=== PATIENT | male | born 1950 | race Caucasian/White ===

== ENCOUNTER 2021-06-09 13:08 | Inpatient (IN) | payer OTHER, MEDICARE ==
[~2021-06-09] VITALS: Ht 165.1 cm; Wt 73.6 kg
--- NOTE | 2021-06-09 14:19 | NUR ---
PT'S STEP-SON DENICE [phone]
[2021-06-09 15:01] LABS: BASOPHILS % (AUTO) 0.5 % (0-1); EOSINOPHILS % (AUTO) 0.5 % (0-6); HEMATOCRIT 34.7 % (42.0-52.0); HEMOGLOBIN 11.8 g/dl (14.0-17.9); LYMPHOCYTES # (AUTO) 0.9 X10'3 (1.1-4.8); LYMPHOCYTES % (AUTO) 12.5 % (21-51); MEAN CORPUSCULAR HEMOGLOBIN 30.1 PG (27.0-31.0); MEAN CORPUSCULAR HGB CONC 34.1 g/dL (33.0-36.5); MEAN CORPUSCULAR VOLUME 88.2 FL (78-98); MONOCYTES # (AUTO) 1.3 X10'3 (0-0.9); MONOCYTES % (AUTO) 19.3 % (2-12); NEUTROPHILS # (AUTO) 4.7 X10'3 (1.8-7.7); NEUTROPHILS % (AUTO) 67.2 % (42-75); PLATELET COUNT 230 X10'3 (140-440); RED BLOOD COUNT 3.93 X10'6 (4.70-6.10); RED CELL DISTRIBUTION WIDTH 16.4 % (11.5-14.5)
[2021-06-09 15:08] LABS: ALANINE AMINOTRANSFERASE 29 U/L (12-78); ALBUMIN 3.3 G/DL (3.4-5.0); ALKALINE PHOSPHATASE 82 IU/L (46-116); ANION GAP 7 (8-16); ASPARTATE AMINO TRANSFERASE 15 U/L (10-37); BILIRUBIN,TOTAL 0.3 MG/DL (0.1-1.0); BLOOD UREA NITROGEN 18 MG/DL (7-18); CALCIUM 8.5 MG/DL (8.5-10.1); CHLORIDE 104 MMOL/L (99-107); CREATININE 0.75 MG/DL (0.60-1.10); GLUCOSE 92 MG/DL (70-104); MAGNESIUM 1.5 MG/DL (1.5-2.4); POTASSIUM 3.7 MMOL/L (3.5-5.1); SODIUM 138 MMOL/L (135-145); TOTAL PROTEIN 6.6 G/DL (6.4-8.2); eGFR > 90 ML/MIN
[2021-06-09 15:32] LABS: TOTAL CELLS COUNTED 100
[2021-06-09 15:34] LABS: PLATELET ESTIMATE NORMAL
[2021-06-09 15:35] LABS: ANISOCYTOSIS 1+; STOMATOCYTES FEW
[2021-06-09] MEDS ORDERED: dexamethasone sod phosphate 10mg/ml inj IV STA (17:32)
--- NOTE | 2021-06-09 20:46 | NUR ---
UPDATED FAMILY ON PT'S CONDITION.
[2021-06-09 21:06] LABS: CLARITY,URINE CLEAR (Clear); COLOR,URINE YELLOW (Yellow); GLUCOSE, URINE NEGATIVE (Neg); KETONES,URINE TRACE mg/dl (Neg); LEUKOCYTE ESTERASE ,URINE NEGATIVE (Neg); NITRITES, URINE NEGATIVE (Neg); OCCULT BLOOD,URINE NEGATIVE (Neg); PROTEIN,URINE 100 mg/dl (Neg)
[2021-06-09 21:28] LABS: UA COLLECTION TYPE URINAL
[2021-06-09 21:30] LABS: BACTERIA,URINE NONE SEEN /HPF (Neg); SQUAMOUS EPITHELIAL CELL,UR NONE SEEN /LPF (FEW)
[2021-06-09 21:31] LABS: RBC,URINE 0-2 /HPF (0-2); WBC,URINE 0-4 /HPF (0-4)
--- NOTE | 2021-06-09 22:10 | NUR ---
PT WAS SITTING ON THE FLOOR WITH THIS BACK UP AGAINST HIS GURNEY WHEN I WALKED IN TO CHECK ON HIM. VITALS STABLE. PT AWAKE, ALERT, AND ORIENTED. ASKED PT IF HE FELL. HE SAID NO. HE ALSO DENIED HITTING HIS HEAD. NO OBVIOUS SIGN OF TRAUMA. PT DENIES ANY PAIN. PT URINATED ON HIS BED PRIOR TO SITTING ON THE FLOOR. BEDDING HAS BEEN CHANGED. PT WAS HELPED UP AND BACK ON BED BY 2 RNS. SIDERAILS ARE UP. BED IS LOW TO GROUND.
[2021-06-09] MEDS ORDERED: ondansetron/PF 4mg/2ml inj IV PRN (23:50)
[2021-06-09] MEDS ORDERED: magnesium 2GM in 50ml NS 50 ML IV PRN (23:50)
[2021-06-09] MEDS ORDERED: dextrose 50%-water 50ml dispensing syringe IV PRN ×2 (23:50)
[2021-06-09] MEDS ORDERED: potassium Cl 20 mEq SR tablet PO PRN ×2 (23:50)
[2021-06-09] MEDS ORDERED: mag hydrox/Alum hydrox/simeth 30ml oral suspension PO PRN (23:50)
[2021-06-09] MEDS ORDERED: magnesium Cl slow-release 64mg tablet PO PRN (23:50)
[2021-06-09] MEDS ORDERED: potassium Cl 40MEQ/1/2NS 520ml 520 ML IV PRN ×2 (23:50)
[2021-06-09] MEDS ORDERED: insulin Lispro (HumaLOG) vial - multi-dose SQ SCH (23:50)
[2021-06-09] MEDS ORDERED: glucagon, human recombinant 1mg kit SUBCUT PRN (23:50)
[2021-06-09] MEDS ORDERED: acetaminophen 325mg tablet PO PRN ×2 (23:50)
[2021-06-09] MEDS ORDERED: dextrose ORAL solution 15 GM/59 ML bottle PO PRN ×2 (23:50)
[2021-06-09] MEDS ORDERED: MESSAGE TO PHARMACY PO ONE (23:50)
[2021-06-09] MEDS ORDERED: magnesium 4gm in 100ml NS 100 ML IV PRN (23:50)
[2021-06-09] MEDS ORDERED: magnesium hydroxide 30ml (MOM) UD suspension PO PRN (23:50)
--- NOTE | 2021-06-10 01:03 | NUR ---
PT ATE A SANDWICH. LIGHT WAS THEN DIMMED AND PT WAS PROVIDED AN EXTRA BLANKET.
[2021-06-10] MEDS: normal saline 1000ml 1,000 ML IV SCH ×3 (01:21→22:24)
--- NOTE | 2021-06-10 03:35 | NUR ---
PT IS SLEEPING COMFORTABLY. EASILY AWAKEN WHEN SOMEONE ENTERS ROOM. EQUAL RISE AND FALL OF CHEST
[2021-06-10 05:33] LABS: BASOPHILS % (AUTO) 0.5 % (0-1); EOSINOPHILS % (AUTO) 0 % (0-6); HEMATOCRIT 37.3 % (42.0-52.0); HEMOGLOBIN 12.4 g/dl (14.0-17.9); LYMPHOCYTES # (AUTO) 0.6 X10'3 (1.1-4.8); LYMPHOCYTES % (AUTO) 14.7 % (21-51); MEAN CORPUSCULAR HEMOGLOBIN 29.4 PG (27.0-31.0); MEAN CORPUSCULAR HGB CONC 33.3 g/dL (33.0-36.5); MEAN CORPUSCULAR VOLUME 88.4 FL (78-98); MEAN PLATELET VOLUME 8.1 FL (7.4-10.4); MONOCYTES # (AUTO) 0.5 X10'3 (0-0.9); MONOCYTES % (AUTO) 10.7 % (2-12); NEUTROPHILS # (AUTO) 3.2 X10'3 (1.8-7.7); NEUTROPHILS % (AUTO) 74.1 % (42-75); PLATELET COUNT 223 X10'3 (140-440); RED BLOOD COUNT 4.21 X10'6 (4.70-6.10); WHITE BLOOD COUNT 4.3 X10'3 (4.5-11.0)
[2021-06-10 05:46] LABS: ALANINE AMINOTRANSFERASE 31 U/L (12-78); ALBUMIN 3.2 G/DL (3.4-5.0); ALBUMIN/GLOBULIN RATIO 0.9 (1.1-1.5); ALKALINE PHOSPHATASE 80 IU/L (46-116); ANION GAP 5 (8-16); ASPARTATE AMINO TRANSFERASE 21 U/L (10-37); BILIRUBIN,TOTAL 0.3 MG/DL (0.1-1.0); BLOOD UREA NITROGEN 15 MG/DL (7-18); CALCIUM 8.4 MG/DL (8.5-10.1); CHLORIDE 106 MMOL/L (99-107); CHOL/HDL RATIO 2.6 (0.00-4.99); CHOLESTEROL 125 MG/DL (0-200); CREATININE 0.75 MG/DL (0.60-1.10); GLUCOSE 131 MG/DL (70-104); HDL CHOLESTEROL 49 MG/DL (35-60); LDL CHOLESTEROL 52 MG/DL (50-100); MAGNESIUM 1.7 MG/DL (1.5-2.4); SODIUM 141 MMOL/L (135-145); TOTAL CARBON DIOXIDE 30.5 MMOL/L (24-32); TOTAL PROTEIN 6.8 G/DL (6.4-8.2); TRIGLYCERIDES 70 MG/DL (20-135); eGFR > 90 ML/MIN
--- NOTE | 2021-06-10 07:48 | NUR ---
PT'S MAREN FREY PHONE # [phone] KALEN FERMIN, PT DAUGHTER [phone] PT HAS GIVEN PERMISSION TO GIVE THE ABOVE FAMILY MEMBERS INFORMATION REGARDING HIS STATUS WHILE HOSPITALIZED.
[2021-06-10] MEDS: K and/or MAG REPLACEMENT MC SCH ×2 (08:00→22:26)
[2021-06-10] MEDS: heparin, porcine 5000 units/ml vial SQ SCH (08:46)
[2021-06-10] MEDS ORDERED: ATOR20TA66 PO (09:36)
[2021-06-10] MEDS ORDERED: SERT-434 PO (09:36)
[2021-06-10] MEDS ORDERED: BUPR100T13 PO (09:36)
[2021-06-10] MEDS ORDERED: ALBU8.5H17 IH (09:36)
[2021-06-10] MEDS ORDERED: MELO-102 PO (09:36)
[2021-06-10] MEDS ORDERED: DIVA500T9 PO (09:36)
[2021-06-10] MEDS ORDERED: LOSA100T57 PO (09:36)
[2021-06-10] MEDS ORDERED: AMLO10TA PO (09:36)
[2021-06-10] MEDS ORDERED: LORA10TA7 PO (09:36)
[2021-06-10] MEDS ORDERED: METF-436 PO (09:36)
[2021-06-10] MEDS ORDERED: TIOT4MIS5 INH (09:36)
[2021-06-10] MEDS ORDERED: CHOL20004 PO (09:36)
[2021-06-10] MEDS ORDERED: OMEP40CA21 PO (09:36)
[2021-06-10] MEDS ORDERED: HYDR12.55 PO (09:36)
[2021-06-10] MEDS ORDERED: OMEG-79 PO (09:36)
[2021-06-10] MEDS ORDERED: HYDR-3973 PO (09:39)
--- NOTE | 2021-06-10 12:07 | NUR ---
TELEPHONE CALL FROM PATIENT'S COUSIN, JOSE OLIVAREZ. PATIENT AUTHORIZED FOR NURSE TO GIVE INFORMATION TO JOSE. CONDITION REPORT GIVEN. JOSE OLIVAREZ (COUSIN) CONTACT PHONE NUMBER: [phone]
[2021-06-10] MEDS ORDERED: ALBUTEROL INHALER 1 PUFF/90 MCG INHALER IH PRN (12:30)
[2021-06-10] MEDS ORDERED: loratadine 10mg tablet PO PRN (12:30)
[2021-06-10] MEDS ORDERED: pantoprazole 40mg Tablet.DR PO PRN (12:39)
[2021-06-10] MEDS: amLODIPine 5mg tablet PO SCH (13:56)
[2021-06-10] MEDS: HYDROchlorothiazide 12.5mg capsule PO SCH (13:56)
[2021-06-10] MEDS: cholecalciferol (vitamin D3) 1,000 unit (25mcg) tablet PO SCH (13:56)
[2021-06-10] MEDS: losartan 50mg tablet PO SCH (13:57)
[2021-06-10] MEDS: sertraline 50mg tablet PO SCH (13:58)
[2021-06-10] MEDS ORDERED: ipratropium 0.5 MG/2.5ML nebule NEB SCH (15:00)
[2021-06-10] MEDS: OMEGA-3/DHA/EPA/FISH OIL 1 EACH CAPSULE.DR PO SCH (20:00)
[2021-06-10] MEDS: buPROPion 100mg tablet PO SCH (20:00)
--- NOTE | 2021-06-10 20:07 | NUR ---
ATTEMPT TO D/C PT, WHO IS AWAKE AND ALERT, VSS, NOT NEEDING OXYGEN. PT HOWEVER IS EXTREMELY WEAK, UNABLE TO SIT AT SIDE OF BED UNASSISTED, UNABLE TO AMBULATE. DR CLARK PG'ED AND NOTIFIED, ORDERS TO CANCEL D/C AT THIS TIME. REPORTS THEY CAN LOOK INTO IT TOMORROW.
[2021-06-10] MEDS ORDERED: divalproex sod 250mg ER (24-hour) tablet PO SCH (21:00)
[2021-06-10] MEDS ORDERED: insulin glargine (Lantus) pen - multi-dose SQ SCH (21:00)
[2021-06-10] MEDS: metFORMIN 500mg tablet PO SCH (22:24)
--- NOTE | 2021-06-10 23:15 | NUR ---
REPORT GIVEN TO SHORT STAY RN
--- NOTE | 2021-06-10 23:30 | NUR ---
Received report from returned goods sorterCURTIS Lopes. Pt. to follow shortly.
--- NOTE | 2021-06-10 23:45 | NUR ---
Patient arrived to unit from ER via w/c. Patient assisted into bed and 2 RN skin check performed. Patient in no distress.
[2021-06-11] VITALS: BP 139/77
--- NOTE | 2021-06-11 00:05 | NUR ---
Called with regard to elevated temp of 102.7. MD did not want blood cultures re-drawn or ABX started at this time Addendum: 06/11/21 at 0116 by Keiry Middleton RN Tylenol given for fever.
[2021-06-11] MEDS: heparin, porcine 5000 units/ml vial SQ SCH ×2 (00:26→08:07)
[2021-06-11 02:00] VITALS: BP 131/65
--- NOTE | 2021-06-11 02:01 | NUR ---
HS meds were not given in the ER. Addendum: 06/11/21 at 0202 by Keiry Middleton RN and only the heparin available to give,
[2021-06-11] MEDS: normal saline 1000ml 1,000 ML IV SCH ×2 (05:50→13:08)
[2021-06-11 06:00] VITALS: BP 153/73
--- NOTE | 2021-06-11 06:45 | NUR ---
Problems reprioritized. Patient report given, questions answered & plan of care reviewed with Twyla ACEVEDO.
[2021-06-11] MEDS ORDERED: atorvastatin 20mg tablet PO SCH (08:00)
[2021-06-11] MEDS ORDERED: Meloxicam 15 MG TAB PO SCH (08:00)
[2021-06-11] MEDS: K and/or MAG REPLACEMENT MC SCH (08:00)
[2021-06-11] MEDS: cholecalciferol (vitamin D3) 1,000 unit (25mcg) tablet PO SCH (08:04)
[2021-06-11] MEDS: metFORMIN 500mg tablet PO SCH ×2 (08:04→17:30)
[2021-06-11] MEDS: OMEGA-3/DHA/EPA/FISH OIL 1 EACH CAPSULE.DR PO SCH (08:04)
[2021-06-11] MEDS: sertraline 50mg tablet PO SCH (08:04)
[2021-06-11] MEDS: buPROPion 100mg tablet PO SCH (08:05)
[2021-06-11] MEDS: amLODIPine 5mg tablet PO SCH (08:06)
[2021-06-11] MEDS: losartan 50mg tablet PO SCH (08:06)
[2021-06-11] MEDS: HYDROchlorothiazide 12.5mg capsule PO SCH (08:06)
[2021-06-11 08:18] LABS: BASOPHILS % (AUTO) 0.4 % (0-1); EOSINOPHILS % (AUTO) 0.1 % (0-6); HEMATOCRIT 37.8 % (42.0-52.0); HEMOGLOBIN 12.3 g/dl (14.0-17.9); LYMPHOCYTES # (AUTO) 1.8 X10'3 (1.1-4.8); LYMPHOCYTES % (AUTO) 34.1 % (21-51); MEAN CORPUSCULAR HEMOGLOBIN 29.3 PG (27.0-31.0); MEAN CORPUSCULAR HGB CONC 32.5 g/dL (33.0-36.5); MEAN CORPUSCULAR VOLUME 90.1 FL (78-98); MEAN PLATELET VOLUME 8.4 FL (7.4-10.4); MONOCYTES # (AUTO) 0.8 X10'3 (0-0.9); MONOCYTES % (AUTO) 15.2 % (2-12); NEUTROPHILS # (AUTO) 2.7 X10'3 (1.8-7.7); NEUTROPHILS % (AUTO) 50.2 % (42-75); PLATELET COUNT 202 X10'3 (140-440); RED BLOOD COUNT 4.19 X10'6 (4.70-6.10); RED CELL DISTRIBUTION WIDTH 15.9 % (11.5-14.5); WHITE BLOOD COUNT 5.4 X10'3 (4.5-11.0)
[2021-06-11 08:48] LABS: ALANINE AMINOTRANSFERASE 26 U/L (12-78); ALBUMIN 3.2 G/DL (3.4-5.0); ALBUMIN/GLOBULIN RATIO 0.9 (1.1-1.5); ALKALINE PHOSPHATASE 77 IU/L (46-116); ANION GAP 7 (8-16); ASPARTATE AMINO TRANSFERASE 25 U/L (10-37); BILIRUBIN,TOTAL 0.3 MG/DL (0.1-1.0); BLOOD UREA NITROGEN 15 MG/DL (7-18); CALCIUM 7.9 MG/DL (8.5-10.1); CHLORIDE 102 MMOL/L (99-107); CREATININE 0.75 MG/DL (0.60-1.10); GLUCOSE 77 MG/DL (70-104); MAGNESIUM 1.7 MG/DL (1.5-2.4); POTASSIUM 3.5 MMOL/L (3.5-5.1); SODIUM 138 MMOL/L (135-145); TOTAL CARBON DIOXIDE 29.3 MMOL/L (24-32); TOTAL PROTEIN 6.6 G/DL (6.4-8.2); eGFR > 90 ML/MIN
[2021-06-11 09:25] LABS: TOTAL CELLS COUNTED 100
[2021-06-11 09:26] LABS: PLATELET ESTIMATE NORMAL
[2021-06-11 10:00] VITALS: BP 151/66
[2021-06-11] MEDS ORDERED: DEXA6TAB6 PO (11:45)
--- NOTE | 2021-06-11 11:58 | NUR ---
O2 Sat at rest on room air:_85__% If below 89%: Recovery O2 Sat at rest on __2_LPM:__96_% via NASAL CANNULA (mask/nasal cannula, etc..) No further documentation is necessary. If O2 Sat did not drop below 89% on room air,ambulate patient on room air. O2 Sat while ambulating on room air:___% Recovery O2 Sat while ambulating on ___LPM:___% No further documentation is necessary. If patient does not drop below 89% while ambulating, he/she does not qualify for home O2.
--- NOTE | 2021-06-11 17:07 | NUR ---
PAGER ID: [phone] MESSAGE: Mp CALHOUN 02A- COVID UNIT- PT IS A pt and requires a handwritten prescription. can you please drop one off at the covid unit. thank you. pt is ready for DC. Family will be here at 1750. I'm sorry. thank you. Twyla Gloria [phone]
== END 2021-06-11 18:15 | disposition home or self-care (01) | DRG 177 ==
LOC: ER 13:09 → ED HOLD 23:52 → COVID IP 06-10 23:30
PROVIDERS: ADMIT Internal Medicine; ATTEND Internal Medicine
DX: U07.1 COVID-19 (principal); J96.01 Acute respiratory failure with hypoxia; E11.51 Type 2 diabetes mellitus with diabetic peripheral angiopathy without gangrene; E78.5 Hyperlipidemia, unspecified; F17.210 Nicotine dependence, cigarettes, uncomplicated; F32.9 Major depressive disorder, single episode, unspecified; I10 Essential (primary) hypertension; J44.9 Chronic obstructive pulmonary disease, unspecified; K21.9 Gastro-esophageal reflux disease without esophagitis; R29.6 Repeated falls; Z79.84 Long term (current) use of oral hypoglycemic drugs; Z79.899 Other long term (current) drug therapy; Z91.81 History of falling; Z71.6 Tobacco abuse counseling; R53.1 Weakness
CPT/HCPCS: 36415; 70450; 71045; 80053; 80061; 81001; 82948; 83036; 83605; 83735; 84145; 85007; 85025; 87040; 87081; 87635; 93005; 94760; 99285; C9803; G0378; J1100; J1644; J1815; J7030

== ENCOUNTER 2021-06-19 10:53 | Inpatient (IN) | payer OTHER, MEDICARE ==
[~2021-06-19] VITALS: Ht 172.7 cm; Wt 85.0 kg
[~2021-06-19 10:53] MED LIST: ALBU8.5H17 IH; AMLO10TA PO; ATOR20TA66 PO; BUPR100T13 PO; CHOL20004 PO; DEXA6TAB6 PO; DIVA500T9 PO; HYDR12.55 PO; LORA10TA7 PO; LOSA100T57 PO; MELO-102 PO; METF-436 PO; OMEG-79 PO; OMEP40CA21 PO; SERT-434 PO; TIOT4MIS5 INH
[2021-06-19] MEDS ORDERED: dexamethasone sod phosphate 10mg/ml inj IV STA ×2 (11:40→14:57)
[2021-06-19] MEDS ORDERED: ALBUTEROL INHALER 1 PUFF/90 MCG INHALER IH PRN (11:40)
[2021-06-19 12:17] LABS: ABG BASE EXCESS 3.4 mmol/L (-2.0-2.0); ABG HCO3 28.3 mmol/L (22.0-26.0); ABG PCO2 (T) 44.2 mmHg (35.0-48.0); ABG PO2 (T) 65.9 mmHg (75.0-100.0); ALLEN'S TEST POSITIVE; FCOHb 0.3 % (0.0-3.9); FLOW 7 L/min; FMetHb 0.3 % (0.0-1.5); FO2Hb 90.5 % (94-97); TOTAL HEMOGLOBIN 11.8 G/dl (14.0-18.0)
[2021-06-19 12:36] LABS: D-DIMER 1.83 MG/L FEU (0-0.50)
[2021-06-19 12:37] LABS: BASOPHILS % (AUTO) 0.2 % (0-1); EOSINOPHILS % (AUTO) 0 % (0-6); HEMATOCRIT 34.9 % (42.0-52.0); HEMOGLOBIN 11.5 g/dl (14.0-17.9); LYMPHOCYTES # (AUTO) 0.5 X10'3 (1.1-4.8); LYMPHOCYTES % (AUTO) 5.5 % (21-51); MEAN CORPUSCULAR HEMOGLOBIN 29.1 PG (27.0-31.0); MEAN CORPUSCULAR HGB CONC 32.9 g/dL (33.0-36.5); MEAN CORPUSCULAR VOLUME 88.5 FL (78-98); MEAN PLATELET VOLUME 8.9 FL (7.4-10.4); MONOCYTES # (AUTO) 0.3 X10'3 (0-0.9); MONOCYTES % (AUTO) 3.7 % (2-12); NEUTROPHILS # (AUTO) 8.1 X10'3 (1.8-7.7); NEUTROPHILS % (AUTO) 90.6 % (42-75); PLATELET COUNT 276 X10'3 (140-440); RED BLOOD COUNT 3.94 X10'6 (4.70-6.10); RED CELL DISTRIBUTION WIDTH 15.8 % (11.5-14.5); WHITE BLOOD COUNT 8.9 X10'3 (4.5-11.0)
[2021-06-19 12:46] LABS: ALANINE AMINOTRANSFERASE 18 U/L (12-78); ALBUMIN 2.2 G/DL (3.4-5.0); ALBUMIN/GLOBULIN RATIO 0.5 (1.1-1.5); ALKALINE PHOSPHATASE 86 IU/L (46-116); ANION GAP 10 (8-16); ASPARTATE AMINO TRANSFERASE 40 U/L (10-37); BILIRUBIN,TOTAL 0.4 MG/DL (0.1-1.0); BLOOD UREA NITROGEN 56 MG/DL (7-18); BUN/CREATININE RATIO 45.5 (5.4-32.0); CALCIUM 8.6 MG/DL (8.5-10.1); CHLORIDE 104 MMOL/L (99-107); CREATININE 1.23 MG/DL (0.60-1.10); GLUCOSE 90 MG/DL (70-104); POTASSIUM 3.6 MMOL/L (3.5-5.1); SODIUM 143 MMOL/L (135-145); TOTAL CARBON DIOXIDE 29.1 MMOL/L (24-32); TOTAL PROTEIN 6.6 G/DL (6.4-8.2); eGFR 58 ML/MIN
[2021-06-19 12:50] LABS: C-REACTIVE PROTEIN 22.23 MG/DL (0.0-0.5)
[2021-06-19] MEDS ORDERED: vancomycin/NS 1 GM ADD-VANTAGE 250 ML IV ONE (13:15)
[2021-06-19] MEDS ORDERED: CefTRIAXone 2gm/D5W 50ml BAG 50 ML IV ONE (13:15)
[2021-06-19] MEDS ORDERED: magnesium 2GM in 50ml NS 50 ML IV PRN (13:30)
[2021-06-19] MEDS ORDERED: dextrose 50%-water 50ml dispensing syringe IV PRN ×2 (13:30)
[2021-06-19] MEDS ORDERED: glucagon, human recombinant 1mg kit SUBCUT PRN (13:30)
[2021-06-19] MEDS ORDERED: dextrose ORAL solution 15 GM/59 ML bottle PO PRN ×2 (13:30)
[2021-06-19] MEDS ORDERED: potassium Cl 40MEQ/1/2NS 520ml 520 ML IV PRN ×2 (13:30)
[2021-06-19] MEDS ORDERED: ondansetron/PF 4mg/2ml inj IV PRN (13:30)
[2021-06-19] MEDS ORDERED: acetaminophen 325mg tablet PO PRN (13:30)
[2021-06-19] MEDS ORDERED: potassium Cl 20 mEq SR tablet PO PRN ×2 (13:30)
[2021-06-19] MEDS ORDERED: MESSAGE TO PHARMACY PO ONE (13:30)
[2021-06-19] MEDS ORDERED: magnesium 4gm in 100ml NS 100 ML IV PRN (13:30)
--- NOTE | 2021-06-19 13:57 | NUR ---
Transported to CT via gurney by [employer].
[2021-06-19] MEDS ORDERED: HYDR-3972 PO (15:55)
[2021-06-19] MEDS ORDERED: TRAZ-256 PO (15:55)
[2021-06-19] MEDS ORDERED: loratadine 10mg tablet PO PRN (16:05)
[2021-06-19] MEDS ORDERED: pantoprazole 40mg Tablet.DR PO PRN (16:05)
[2021-06-19] MEDS: normal saline 1000ml 1,000 ML IV SCH ×2 (16:22→23:35)
--- NOTE | 2021-06-19 19:15 | NUR ---
Pt continues to be confused. He lists to the Right and curls up in bed. He was given dinner. He ate 1 green sepulveda with his hands. He was given the call light and had to be reminded several times at to what it was for. I made a note and attached it to the light so that he knows what it is for and how to get help.
[2021-06-19] MEDS: buPROPion 100mg tablet PO SCH (20:00)
[2021-06-19] MEDS: K and/or MAG REPLACEMENT MC SCH (20:00)
[2021-06-19] MEDS: dexamethasone 4mg/ml inj IV SCH (20:07)
[2021-06-19] MEDS: enoxaparin 40mg/0.4ml syringe SQ SCH (20:09)
[2021-06-19] MEDS: OMEGA-3/DHA/EPA/FISH OIL 1 EACH CAPSULE.DR PO SCH (20:10)
[2021-06-19] MEDS: docusate sod 100mg capsule PO SCH (20:12)
[2021-06-19] MEDS: insulin glargine (Lantus) pen - multi-dose SQ SCH (20:13)
[2021-06-19] MEDS: ipratropium 0.5 MG/2.5ML nebule NEB SCH (20:13)
[2021-06-19] MEDS: traZODone 50mg tablet PO SCH (21:35)
[2021-06-19] MEDS: divalproex sod 250mg ER (24-hour) tablet PO SCH (23:01)
[2021-06-19] MEDS: insulin Lispro (HumaLOG) vial - multi-dose SQ SCH (23:46)
[2021-06-20 02:58] LABS: BASOPHILS % (AUTO) 0.1 % (0-1); EOSINOPHILS % (AUTO) 0 % (0-6); HEMATOCRIT 34.5 % (42.0-52.0); HEMOGLOBIN 11.2 g/dl (14.0-17.9); LYMPHOCYTES # (AUTO) 0.3 X10'3 (1.1-4.8); LYMPHOCYTES % (AUTO) 3.8 % (21-51); MEAN CORPUSCULAR HGB CONC 32.6 g/dL (33.0-36.5); MEAN CORPUSCULAR VOLUME 89.1 FL (78-98); MEAN PLATELET VOLUME 8.3 FL (7.4-10.4); MONOCYTES # (AUTO) 0.3 X10'3 (0-0.9); MONOCYTES % (AUTO) 4.2 % (2-12); NEUTROPHILS # (AUTO) 6.6 X10'3 (1.8-7.7); NEUTROPHILS % (AUTO) 91.9 % (42-75); PLATELET COUNT 273 X10'3 (140-440); RED BLOOD COUNT 3.87 X10'6 (4.70-6.10); WHITE BLOOD COUNT 7.2 X10'3 (4.5-11.0)
[2021-06-20] MEDS: ipratropium 0.5 MG/2.5ML nebule NEB SCH ×3 (03:00→21:00)
[2021-06-20 03:11] LABS: D-DIMER 1.49 MG/L FEU (0-0.50)
[2021-06-20 03:17] LABS: ALANINE AMINOTRANSFERASE 18 U/L (12-78); ALBUMIN 1.9 G/DL (3.4-5.0); ALBUMIN/GLOBULIN RATIO 0.4 (1.1-1.5); ALKALINE PHOSPHATASE 84 IU/L (46-116); ANION GAP 9 (8-16); ASPARTATE AMINO TRANSFERASE 35 U/L (10-37); BILIRUBIN,TOTAL 0.3 MG/DL (0.1-1.0); BLOOD UREA NITROGEN 45 MG/DL (7-18); BUN/CREATININE RATIO 47.9 (5.4-32.0); C-REACTIVE PROTEIN 22.68 MG/DL (0.0-0.5); CALCIUM 8.3 MG/DL (8.5-10.1); CHLORIDE 107 MMOL/L (99-107); CREATININE 0.94 MG/DL (0.60-1.10); GLUCOSE 138 MG/DL (70-104); POTASSIUM 3.9 MMOL/L (3.5-5.1); SODIUM 143 MMOL/L (135-145); TOTAL CARBON DIOXIDE 26.6 MMOL/L (24-32); TOTAL PROTEIN 6.4 G/DL (6.4-8.2); eGFR 79 ML/MIN
--- NOTE | 2021-06-20 07:29 | NUR ---
ATTEMPTED TO CALL REPORT, RN UNAVAILABLE, WILL CALL BACK.
[2021-06-20] MEDS ORDERED: nicotine 21mg patch - 24 hr TD SCH (08:00)
[2021-06-20] MEDS: K and/or MAG REPLACEMENT MC SCH ×2 (08:00→20:00)
--- NOTE | 2021-06-20 08:15 | NUR ---
ATTEMPTED TO CALL REPORT, RN UNAVAILABLE, WILL CALL BACK.
--- NOTE | 2021-06-20 08:25 | NUR ---
per hospital protocol no svn for covid pts Addendum: 06/20/21 at 0826 by Cande Castellon RT Amended: Links added.
[2021-06-20] MEDS: dexamethasone 4mg/ml inj IV SCH ×2 (08:33→20:38)
[2021-06-20] MEDS: sertraline 50mg tablet PO SCH (08:33)
[2021-06-20] MEDS: docusate sod 100mg capsule PO SCH ×2 (08:33→20:38)
[2021-06-20] MEDS: atorvastatin 20mg tablet PO SCH (08:33)
[2021-06-20] MEDS: enoxaparin 40mg/0.4ml syringe SQ SCH ×2 (08:34→20:39)
[2021-06-20] MEDS: cholecalciferol (vitamin D3) 1,000 unit (25mcg) tablet PO SCH (08:34)
[2021-06-20] MEDS: OMEGA-3/DHA/EPA/FISH OIL 1 EACH CAPSULE.DR PO SCH ×2 (08:34→20:38)
[2021-06-20] MEDS: buPROPion 100mg tablet PO SCH ×2 (08:38→20:38)
[2021-06-20 09:15] VITALS: BP 131/68
[2021-06-20 10:00] VITALS: BP 115/56
--- NOTE | 2021-06-20 13:12 | NUR ---
Patient in room ORTHO 4016. I have received report from CURTIS KC, and had the opportunity to ask questions and assume patient care. Addendum: 06/20/21 at 1313 by Supriya Mayo RN ASSUMED CARE AT 0915
[2021-06-20] MEDS: normal saline 1000ml 1,000 ML IV SCH (17:03)
--- NOTE | 2021-06-20 17:56 | NUR ---
PT'S DAUGHTER IS CONCERNED ABOUT FATHER'S POA/MEDICAL DECISION MAKER. PT WAS ASKED WHO HE WOULD CHOOSE. PT STATED THAT HE DIDN'T WANT HIS DAUGHTER, FIANCEE OR SON IN THAT POSITION, STATING DIFFERENT REASONS. THE PT LATER STATED THAT HE WANTED A "WORK FRIEND"LISBET DOVE. ACCORDING TO MEDICAL RECORD, PT HAS EARLY DEMENTIA.
[2021-06-20 18:00] VITALS: BP 130/85
--- NOTE | 2021-06-20 18:27 | NUR ---
Problems reprioritized. Patient report given, questions answered & plan of care reviewed with CURTIS MUNIZ.
--- NOTE | 2021-06-20 18:44 | NUR ---
Patient in room ORTHO 4016. I have received report from Supriya ACEVEDO and had the opportunity to ask questions and assume patient care.
[2021-06-20] MEDS: insulin Lispro (HumaLOG) vial - multi-dose SQ SCH (19:34)
[2021-06-20] MEDS: traZODone 50mg tablet PO SCH (20:38)
[2021-06-20] MEDS: divalproex sod 250mg ER (24-hour) tablet PO SCH (20:39)
[2021-06-20 22:00] VITALS: BP 115/66
[2021-06-20] MEDS: insulin glargine (Lantus) pen - multi-dose SQ SCH (22:13)
[2021-06-21 02:00] VITALS: BP 132/65
[2021-06-21] MEDS: ipratropium 0.5 MG/2.5ML nebule NEB SCH ×3 (03:00→22:00)
[2021-06-21] MEDS: normal saline 1000ml 1,000 ML IV SCH ×4 (03:04→23:31)
[2021-06-21 06:00] VITALS: BP 147/69
--- NOTE | 2021-06-21 06:50 | NUR ---
Patient in room ORTHO 4016. I have received report from CURTIS Adkins and had the opportunity to ask questions and assume patient care.
--- NOTE | 2021-06-21 06:54 | NUR ---
Problems reprioritized. Patient report given, questions answered & plan of care reviewed with Faith RN.
[2021-06-21 07:28] LABS: BASOPHILS % (AUTO) 0 % (0-1); EOSINOPHILS % (AUTO) 0 % (0-6); HEMATOCRIT 34.8 % (42.0-52.0); HEMOGLOBIN 11.3 g/dl (14.0-17.9); LYMPHOCYTES # (AUTO) 0.6 X10'3 (1.1-4.8); LYMPHOCYTES % (AUTO) 5.9 % (21-51); MEAN CORPUSCULAR HEMOGLOBIN 28.9 PG (27.0-31.0); MEAN CORPUSCULAR HGB CONC 32.4 g/dL (33.0-36.5); MEAN CORPUSCULAR VOLUME 89.3 FL (78-98); MEAN PLATELET VOLUME 8.4 FL (7.4-10.4); MONOCYTES # (AUTO) 0.7 X10'3 (0-0.9); MONOCYTES % (AUTO) 7.3 % (2-12); NEUTROPHILS # (AUTO) 8.6 X10'3 (1.8-7.7); NEUTROPHILS % (AUTO) 86.8 % (42-75); PLATELET COUNT 332 X10'3 (140-440); RED CELL DISTRIBUTION WIDTH 16.2 % (11.5-14.5); WHITE BLOOD COUNT 9.9 X10'3 (4.5-11.0)
[2021-06-21 07:45] LABS: D-DIMER 1.75 MG/L FEU (0-0.50)
[2021-06-21] MEDS: K and/or MAG REPLACEMENT MC SCH ×2 (08:00→20:00)
[2021-06-21 08:06] LABS: ALANINE AMINOTRANSFERASE 16 U/L (12-78); ALBUMIN 1.9 G/DL (3.4-5.0); ALBUMIN/GLOBULIN RATIO 0.4 (1.1-1.5); ALKALINE PHOSPHATASE 84 IU/L (46-116); ANION GAP 5 (8-16); ASPARTATE AMINO TRANSFERASE 31 U/L (10-37); BILIRUBIN,TOTAL 0.3 MG/DL (0.1-1.0); BLOOD UREA NITROGEN 42 MG/DL (7-18); BUN/CREATININE RATIO 53.8 (5.4-32.0); C-REACTIVE PROTEIN 7.84 MG/DL (0.0-0.5); CALCIUM 8.3 MG/DL (8.5-10.1); CHLORIDE 112 MMOL/L (99-107); CREATININE 0.78 MG/DL (0.60-1.10); GLUCOSE 92 MG/DL (70-104); POTASSIUM 3.9 MMOL/L (3.5-5.1); SODIUM 145 MMOL/L (135-145); TOTAL CARBON DIOXIDE 28.1 MMOL/L (24-32); TOTAL PROTEIN 6.2 G/DL (6.4-8.2); eGFR > 90 ML/MIN
[2021-06-21 08:48] LABS: ANISOCYTOSIS 1+; PLATELET ESTIMATE NORMAL; TOTAL CELLS COUNTED 100
[2021-06-21] MEDS: cholecalciferol (vitamin D3) 1,000 unit (25mcg) tablet PO SCH (09:10)
[2021-06-21] MEDS: OMEGA-3/DHA/EPA/FISH OIL 1 EACH CAPSULE.DR PO SCH ×2 (09:11→20:06)
[2021-06-21] MEDS: sertraline 50mg tablet PO SCH (09:11)
[2021-06-21] MEDS: atorvastatin 20mg tablet PO SCH (09:11)
[2021-06-21] MEDS: buPROPion 100mg tablet PO SCH ×2 (09:11→20:06)
[2021-06-21] MEDS: dexamethasone 4mg/ml inj IV SCH ×2 (09:11→20:08)
[2021-06-21] MEDS: docusate sod 100mg capsule PO SCH ×2 (09:11→20:06)
[2021-06-21] MEDS: enoxaparin 40mg/0.4ml syringe SQ SCH ×2 (09:12→20:06)
[2021-06-21 10:00] VITALS: BP 170/82
--- NOTE | 2021-06-21 12:39 | NUR ---
Minimal info to be given to Hanna: Basic status/updates only. NO DC INFO TO HANNA. Per pt's daughter, Vidhi.
[2021-06-21 14:00] VITALS: BP 167/78
[2021-06-21 18:00] VITALS: BP 139/71
--- NOTE | 2021-06-21 18:10 | NUR ---
Patient in room ORTHO 4016. I have received report from CURTIS Adkins and had the opportunity to ask questions and assume patient care.
--- NOTE | 2021-06-21 18:25 | NUR ---
Patient in room ORTHO 4016. I have received report from Faith ACEVEDO and had the opportunity to ask questions and assume patient care.
[2021-06-21] MEDS: insulin Lispro (HumaLOG) vial - multi-dose SQ SCH (19:23)
[2021-06-21] MEDS: divalproex sod 250mg ER (24-hour) tablet PO SCH (20:06)
[2021-06-21] MEDS: traZODone 50mg tablet PO SCH (20:06)
--- NOTE | 2021-06-21 20:41 | NUR ---
Patient's daughter Vidhi wants to be called at anytime if any drastic change in condition. Patients daughter lives on [address]. Phone number [phone]
[2021-06-21] MEDS: insulin glargine (Lantus) pen - multi-dose SQ SCH (21:37)
[2021-06-21 22:00] VITALS: BP 161/86
[2021-06-22 02:00] VITALS: BP 153/74
[2021-06-22] MEDS: ipratropium 0.5 MG/2.5ML nebule NEB SCH ×4 (03:00→21:00)
--- NOTE | 2021-06-22 06:36 | NUR ---
Problems reprioritized. Patient report given, questions answered & plan of care reviewed with Melyssa ACEVEDO.
--- NOTE | 2021-06-22 06:45 | NUR ---
Patient in room ORTHO 4016. I have received report from CURTIS Adkins and had the opportunity to ask questions and assume patient care.
[2021-06-22 07:57] LABS: BASOPHILS % (AUTO) 0.2 % (0-1); EOSINOPHILS % (AUTO) 0 % (0-6); HEMOGLOBIN 11.8 g/dl (14.0-17.9); LYMPHOCYTES # (AUTO) 1.1 X10'3 (1.1-4.8); LYMPHOCYTES % (AUTO) 13.9 % (21-51); MEAN CORPUSCULAR HEMOGLOBIN 29.2 PG (27.0-31.0); MEAN CORPUSCULAR HGB CONC 32.9 g/dL (33.0-36.5); MEAN CORPUSCULAR VOLUME 88.6 FL (78-98); MEAN PLATELET VOLUME 8.6 FL (7.4-10.4); MONOCYTES # (AUTO) 1.3 X10'3 (0-0.9); NEUTROPHILS # (AUTO) 5.7 X10'3 (1.8-7.7); NEUTROPHILS % (AUTO) 69.9 % (42-75); PLATELET COUNT 341 X10'3 (140-440); RED BLOOD COUNT 4.06 X10'6 (4.70-6.10); RED CELL DISTRIBUTION WIDTH 16.6 % (11.5-14.5); WHITE BLOOD COUNT 8.2 X10'3 (4.5-11.0)
[2021-06-22] MEDS: K and/or MAG REPLACEMENT MC SCH ×2 (08:00→21:11)
[2021-06-22] MEDS: insulin Lispro (HumaLOG) vial - multi-dose SQ SCH ×3 (08:01→19:10)
[2021-06-22] MEDS: dexamethasone 4mg/ml inj IV SCH ×2 (08:05→21:02)
[2021-06-22] MEDS: enoxaparin 40mg/0.4ml syringe SQ SCH ×2 (08:06→21:04)
[2021-06-22] MEDS: cholecalciferol (vitamin D3) 1,000 unit (25mcg) tablet PO SCH (08:06)
[2021-06-22] MEDS: docusate sod 100mg capsule PO SCH ×2 (08:06→21:05)
[2021-06-22] MEDS: buPROPion 100mg tablet PO SCH ×2 (08:06→21:06)
[2021-06-22] MEDS: OMEGA-3/DHA/EPA/FISH OIL 1 EACH CAPSULE.DR PO SCH ×2 (08:06→21:05)
[2021-06-22] MEDS: atorvastatin 20mg tablet PO SCH (08:06)
[2021-06-22] MEDS: sertraline 50mg tablet PO SCH (08:06)
[2021-06-22 08:10] LABS: ALANINE AMINOTRANSFERASE 18 U/L (12-78); ALBUMIN/GLOBULIN RATIO 0.4 (1.1-1.5); ALKALINE PHOSPHATASE 95 IU/L (46-116); ANION GAP 12 (8-16); ASPARTATE AMINO TRANSFERASE 40 U/L (10-37); BILIRUBIN,TOTAL 0.4 MG/DL (0.1-1.0); BLOOD UREA NITROGEN 31 MG/DL (7-18); BUN/CREATININE RATIO 40.8 (5.4-32.0); C-REACTIVE PROTEIN 7.16 MG/DL (0.0-0.5); CALCIUM 8.6 MG/DL (8.5-10.1); CHLORIDE 114 MMOL/L (99-107); CREATININE 0.76 MG/DL (0.60-1.10); GLUCOSE 100 MG/DL (70-104); MAGNESIUM 1.9 MG/DL (1.5-2.4); POTASSIUM 4.1 MMOL/L (3.5-5.1); SODIUM 151 MMOL/L (135-145); TOTAL CARBON DIOXIDE 25.1 MMOL/L (24-32); TOTAL PROTEIN 6.6 G/DL (6.4-8.2); eGFR > 90 ML/MIN
[2021-06-22 08:17] LABS: ANISOCYTOSIS 1+; PLATELET ESTIMATE NORMAL; TOTAL CELLS COUNTED 100
[2021-06-22 10:00] VITALS: BP 155/87
[2021-06-22] MEDS: sodium chloride 0.45% 1,000 ML IV SCH ×2 (10:16→23:20)
[2021-06-22 14:00] VITALS: BP 152/71
[2021-06-22 18:00] VITALS: BP 128/69
--- NOTE | 2021-06-22 18:20 | NUR ---
Problems reprioritized. Patient report given, questions answered & plan of care reviewed with CURTIS Adkins.
--- NOTE | 2021-06-22 18:47 | NUR ---
Patient in room ORTHO 4016. I have received report from Melyssa ACEVEDO and had the opportunity to ask questions and assume patient care.
[2021-06-22] MEDS: traZODone 50mg tablet PO SCH (21:06)
[2021-06-22] MEDS: insulin glargine (Lantus) pen - multi-dose SQ SCH (21:11)
[2021-06-22] MEDS: divalproex sod 250mg ER (24-hour) tablet PO SCH (21:26)
[2021-06-22 22:00] VITALS: BP_SYST 128; BP_SYST 139; BP_DIAS 69; BP_DIAS 90
[2021-06-23 02:00] VITALS: BP 137/83
--- NOTE | 2021-06-23 02:33 | NUR ---
No BM since prior to admit, MD called, one time dose of MOM ordered and to have dayshift MD follow up with bowel medication needed.
[2021-06-23] MEDS ORDERED: magnesium hydroxide 30ml (MOM) UD suspension PO ONE (02:35)
[2021-06-23] MEDS: ipratropium 0.5 MG/2.5ML nebule NEB SCH ×4 (03:00→21:00)
[2021-06-23 06:00] VITALS: BP 154/84
--- NOTE | 2021-06-23 06:05 | NUR ---
received report from elieser amanda
--- NOTE | 2021-06-23 06:18 | NUR ---
Problems reprioritized. Patient report given, questions answered & plan of care reviewed with Prisca ACEVEDO.
[2021-06-23 06:30] LABS: BASOPHILS % (AUTO) 0.3 % (0-1); EOSINOPHILS % (AUTO) 0 % (0-6); HEMATOCRIT 36.8 % (42.0-52.0); HEMOGLOBIN 12.1 g/dl (14.0-17.9); LYMPHOCYTES # (AUTO) 1.1 X10'3 (1.1-4.8); LYMPHOCYTES % (AUTO) 10.5 % (21-51); MEAN CORPUSCULAR HEMOGLOBIN 29.3 PG (27.0-31.0); MEAN CORPUSCULAR HGB CONC 32.8 g/dL (33.0-36.5); MEAN CORPUSCULAR VOLUME 89.4 FL (78-98); MEAN PLATELET VOLUME 9.1 FL (7.4-10.4); MONOCYTES % (AUTO) 9.9 % (2-12); NEUTROPHILS # (AUTO) 8.4 X10'3 (1.8-7.7); NEUTROPHILS % (AUTO) 79.3 % (42-75); PLATELET COUNT 241 X10'3 (140-440); RED BLOOD COUNT 4.12 X10'6 (4.70-6.10); RED CELL DISTRIBUTION WIDTH 16.1 % (11.5-14.5); WHITE BLOOD COUNT 10.5 X10'3 (4.5-11.0)
[2021-06-23 06:42] LABS: ALANINE AMINOTRANSFERASE 12 U/L (12-78); ALBUMIN 1.9 G/DL (3.4-5.0); ALBUMIN/GLOBULIN RATIO 0.4 (1.1-1.5); ALKALINE PHOSPHATASE 100 IU/L (46-116); ANION GAP 10 (8-16); ASPARTATE AMINO TRANSFERASE 35 U/L (10-37); BILIRUBIN,TOTAL 0.3 MG/DL (0.1-1.0); BLOOD UREA NITROGEN 28 MG/DL (7-18); BUN/CREATININE RATIO 44.4 (5.4-32.0); C-REACTIVE PROTEIN 5.99 MG/DL (0.0-0.5); CALCIUM 8.9 MG/DL (8.5-10.1); CHLORIDE 112 MMOL/L (99-107); CREATININE 0.63 MG/DL (0.60-1.10); GLUCOSE 95 MG/DL (70-104); MAGNESIUM 1.9 MG/DL (1.5-2.4); SODIUM 148 MMOL/L (135-145); TOTAL CARBON DIOXIDE 26.5 MMOL/L (24-32); TOTAL PROTEIN 6.4 G/DL (6.4-8.2); eGFR > 90 ML/MIN
[2021-06-23] MEDS: K and/or MAG REPLACEMENT MC SCH ×2 (07:05→20:00)
[2021-06-23] MEDS: dexamethasone 4mg/ml inj IV SCH ×2 (07:13→19:33)
[2021-06-23] MEDS: OMEGA-3/DHA/EPA/FISH OIL 1 EACH CAPSULE.DR PO SCH ×2 (07:15→19:33)
[2021-06-23] MEDS: sertraline 50mg tablet PO SCH (07:15)
[2021-06-23] MEDS: cholecalciferol (vitamin D3) 1,000 unit (25mcg) tablet PO SCH (07:15)
[2021-06-23] MEDS: atorvastatin 20mg tablet PO SCH (07:16)
[2021-06-23] MEDS: buPROPion 100mg tablet PO SCH ×2 (07:16→19:51)
[2021-06-23] MEDS: docusate sod 100mg capsule PO SCH ×2 (07:16→19:33)
[2021-06-23] MEDS: enoxaparin 40mg/0.4ml syringe SQ SCH (07:17)
[2021-06-23 07:28] LABS: PLATELET ESTIMATE NORMAL; TOTAL CELLS COUNTED 100
[2021-06-23 07:29] LABS: ANISOCYTOSIS 1+; BURR CELLS 1+; POLYCHROMASIA FEW; SCHISTOCYTES FEW
--- NOTE | 2021-06-23 08:47 | NUR ---
due to his bg of 94 this morning as well as eating two bites of food, pt is not a candidate for insulin at this time, continue to monitor
[2021-06-23 10:00] VITALS: BP 160/87
[2021-06-23] MEDS: sodium chloride 0.45% 1,000 ML IV SCH ×2 (11:23→23:39)
--- NOTE | 2021-06-23 12:04 | NUR ---
I let Dr. Menjivar know that patient patient went down to 51%spo2, I put patient 02 back on he recovered at 88% 15L hf and NRB 15L. He said he'd be up to see him later.
--- NOTE | 2021-06-23 13:07 | NUR ---
pt is not eating at this time and is bg is 129, therefore he is not a candidate for insulin at this time, continue to monitor
[2021-06-23 18:30] VITALS: BP 152/83
--- NOTE | 2021-06-23 18:32 | NUR ---
gave report to elieser josé
[2021-06-23] MEDS: enoxaparin 80mg/0.8ml syringe SUBCUT SCH (19:33)
[2021-06-23] MEDS: divalproex sod 250mg ER (24-hour) tablet PO SCH (19:33)
[2021-06-23] MEDS: traZODone 50mg tablet PO SCH (19:34)
[2021-06-23] MEDS: insulin glargine (Lantus) pen - multi-dose SQ SCH (21:00)
[2021-06-23 22:00] VITALS: BP 145/91
[2021-06-23] MEDS: ALBUTEROL INHALER 1 PUFF/90 MCG INHALER IH PRN (22:57)
[2021-06-24 02:07] VITALS: BP 113/95
[2021-06-24] MEDS: ipratropium 0.5 MG/2.5ML nebule NEB SCH ×3 (03:00→15:00)
[2021-06-24 06:00] VITALS: BP 113/95
--- NOTE | 2021-06-24 06:30 | NUR ---
Problems reprioritized. Patient report given, questions answered & plan of care reviewed with CURTIS ZIMMERMAN.
--- NOTE | 2021-06-24 07:00 | NUR ---
Patient in room ORTHO 4020B. I have received report from CURTIS BOLAÑOS and had the opportunity to ask questions and assume patient care.
[2021-06-24 07:31] LABS: BASOPHILS % (AUTO) 0.2 % (0-1); EOSINOPHILS % (AUTO) 0 % (0-6); HEMATOCRIT 35.4 % (42.0-52.0); HEMOGLOBIN 11.6 g/dl (14.0-17.9); LYMPHOCYTES # (AUTO) 1.3 X10'3 (1.1-4.8); LYMPHOCYTES % (AUTO) 14.2 % (21-51); MEAN CORPUSCULAR HEMOGLOBIN 29.2 PG (27.0-31.0); MEAN CORPUSCULAR HGB CONC 32.9 g/dL (33.0-36.5); MEAN CORPUSCULAR VOLUME 88.7 FL (78-98); MONOCYTES % (AUTO) 10.7 % (2-12); NEUTROPHILS % (AUTO) 74.9 % (42-75); PLATELET COUNT 175 X10'3 (140-440); RED BLOOD COUNT 3.98 X10'6 (4.70-6.10); WHITE BLOOD COUNT 9.3 X10'3 (4.5-11.0)
[2021-06-24 07:45] LABS: D-DIMER 19.42 MG/L FEU (0-0.50)
[2021-06-24 07:58] LABS: ALANINE AMINOTRANSFERASE 15 U/L (12-78); ALBUMIN/GLOBULIN RATIO 0.4 (1.1-1.5); ALKALINE PHOSPHATASE 134 IU/L (46-116); ANION GAP 12 (8-16); ASPARTATE AMINO TRANSFERASE 34 U/L (10-37); BILIRUBIN,TOTAL 0.5 MG/DL (0.1-1.0); BLOOD UREA NITROGEN 27 MG/DL (7-18); BUN/CREATININE RATIO 39.1 (5.4-32.0); C-REACTIVE PROTEIN 23.32 MG/DL (0.0-0.5); CALCIUM 8.9 MG/DL (8.5-10.1); CHLORIDE 109 MMOL/L (99-107); CREATININE 0.69 MG/DL (0.60-1.10); GLUCOSE 78 MG/DL (70-104); POTASSIUM 4.2 MMOL/L (3.5-5.1); SODIUM 146 MMOL/L (135-145); TOTAL CARBON DIOXIDE 25.1 MMOL/L (24-32); TOTAL PROTEIN 6.7 G/DL (6.4-8.2); eGFR > 90 ML/MIN
[2021-06-24] MEDS: K and/or MAG REPLACEMENT MC SCH ×2 (08:00→20:00)
[2021-06-24] MEDS: docusate sod 100mg capsule PO SCH ×4 (08:00→20:38)
[2021-06-24 08:32] LABS: ANISOCYTOSIS 1+; TOTAL CELLS COUNTED 100
[2021-06-24 08:33] LABS: BURR CELLS 1+; PLATELET ESTIMATE NORMAL; SCHISTOCYTES FEW; TOXIC GRANULATION 1+
[2021-06-24] MEDS: OMEGA-3/DHA/EPA/FISH OIL 1 EACH CAPSULE.DR PO SCH ×2 (10:32→10:51)
[2021-06-24] MEDS: cholecalciferol (vitamin D3) 1,000 unit (25mcg) tablet PO SCH (10:32)
[2021-06-24] MEDS: enoxaparin 80mg/0.8ml syringe SUBCUT SCH ×2 (10:33→20:38)
[2021-06-24] MEDS: buPROPion 100mg tablet PO SCH ×2 (10:33→20:38)
[2021-06-24] MEDS: sertraline 50mg tablet PO SCH (10:33)
[2021-06-24] MEDS: atorvastatin 20mg tablet PO SCH (10:33)
[2021-06-24] MEDS: dexamethasone 4mg/ml inj IV SCH (10:34)
--- NOTE | 2021-06-24 11:19 | NUR ---
Page Sent PAGER ID: [phone] MESSAGE: ERASMO [id number]-RE: SAGE CALHOUN [id number]...PTS D-DIMER INCREASED FROM 9.40 TO 19.42
--- NOTE | 2021-06-24 11:35 | NUR ---
I spoke to Dr. Menjivar about patient 02 sats in 70's/80's and patient keep grabbing at mask. He said to put on bi-pap if RT recommends it. RT didn't recommend it yet and said to try restraint measures 1st. Soft limb 2 point restraints ordered per Dr. Menjivar, no BI-pap yet.
[2021-06-24] MEDS: methylPREDNISolone sod succ 125mg/2ml vial IV SCH ×3 (12:18→23:15)
[2021-06-24] MEDS ORDERED: ziprasidone IM 20mg inj **IM only IM ONE (13:10)
--- NOTE | 2021-06-24 13:10 | NUR ---
Page Sent PAGER ID: [phone] MESSAGE: ERASMO [id number] SAGE CALHOUN...PT KEEPS TRYING TO PULL AT LINES EVEN WITH RESTRAINTS...CAN I GET AN ORDER FOR SOMETHING TO CALM HIM DOWN?
[2021-06-24 14:00] VITALS: BP 136/81
[2021-06-24] MEDS: sodium chloride 0.45% 1,000 ML IV SCH (14:39)
--- NOTE | 2021-06-24 15:36 | NUR ---
PPN/Nestor Consults: Pt admit DX COVID-19 PNA, HTN, metabolic encephalopathy, and hypernatremia. Pt PO mostly 0% avg MM5/heart healthy/carb controlled diet 5 days since admit not meeting needs. Pt able to swallow well but desaturates quickly w/ PO does not need CABLE INSTALLATION MANAGER BSS per RN today; AOx1/confused now in restraints w/ sitter on 40L/min high flow per EMR. NG would compromise high flow per RT and pt hx pulling at lines this admit w/ ALOC likely not tolerate a PICC or keep it in per DO. Pt has peripheral IV and DO agreeable to PPN start today; PN recs below using IBW as pending scaled wt this admit. Nestor 12 w/ skin intact per EMR. No BM this admit at least 5 days; unable to take routine bowel care at this time. Will monitor for PN tolerance and additional protein/kcal needs this admit. Rec: 1. PPN per MD using 2:1 Clinimix E 4.25/10 at 103ml/hr goal w/ separate 250ml 20% intralipids to run for 12 hours daily at 20.83ml/hr. In total; to provide 2472ml volume, 105g AA, 247g DEX (2.02 mg/kg/min-using reported wt), and 1760 total kcals. Initiate at 30ml/hr and if tolerating advance Q12H to goal. 2. TG/PALB Q /; daily wts 3. monitor for PPN tolerance 4. liberalize to regular/MM5 diet per DO given poor PO hx; encourage intake 5. IF respiratory status improves consider Ensure Enlive ONS TIDWM; currently unable to take PO meds per EMR 6. IF further poor PO and PN dependence given respiratory status consider TPN for longer-term nutrition Addendum: 06/24/21 at [address] Amended: Links added.
[2021-06-24] MEDS ORDERED: magnesium 4gm in 100ml NS 100 ML IV PRN (16:05)
[2021-06-24] MEDS ORDERED: Dextrose 10%-water IV solution 1,000 ML IV PRN (16:05)
[2021-06-24] MEDS ORDERED: magnesium Cl slow-release 64mg tablet PO PRN (16:05)
[2021-06-24] MEDS ORDERED: magnesium 2GM in 50ml NS 50 ML IV PRN (16:05)
[2021-06-24 18:00] VITALS: BP 158/95
--- NOTE | 2021-06-24 18:11 | NUR ---
Problems reprioritized. Patient report given, questions answered & plan of care reviewed with CURTIS BOLAÑOS.
[2021-06-24] MEDS: CHROMIC CHLORIDE IV SCH (20:07)
[2021-06-24] MEDS: MANGANESE IV SCH (20:07)
[2021-06-24] MEDS: SELENIUM IV SCH (20:07)
[2021-06-24] MEDS: COPPER IV SCH (20:07)
[2021-06-24] MEDS: ZINC IV SCH (20:07)
[2021-06-24] MEDS: fat emulsion IV bag 250 ML IV SCH (20:07)
[2021-06-24] MEDS: [UNRECOGNIZED DRUG - OTHER] IV SCH (20:07)
[2021-06-24] MEDS: divalproex sod 250mg ER (24-hour) tablet PO SCH (20:38)
[2021-06-24] MEDS: traZODone 50mg tablet PO SCH (20:38)
[2021-06-24] MEDS: insulin glargine (Lantus) pen - multi-dose SQ SCH (21:00)
[2021-06-24 22:00] VITALS: BP 159/92
[2021-06-25] MEDS: ALBUTEROL INHALER 1 PUFF/90 MCG INHALER IH PRN (01:18)
[2021-06-25] MEDS: insulin regular, human U-100 3ml vial - multi-dose SQ SCH ×2 (01:52→09:52)
[2021-06-25] MEDS: sodium chloride 0.45% 1,000 ML IV SCH (04:50)
[2021-06-25 06:00] VITALS: BP 163/83
--- NOTE | 2021-06-25 06:15 | NUR ---
Patient in room ORTHO 4020. I have received report from Lelia ACEVEDO and had the opportunity to ask questions and assume patient care.
--- NOTE | 2021-06-25 06:43 | NUR ---
Problems reprioritized. Patient report given, questions answered & plan of care reviewed with CURTIS ROSALES.
--- NOTE | 2021-06-25 07:06 | NUR ---
Patient sating in the 80's, paged respiratory therapy
--- NOTE | 2021-06-25 07:51 | NUR ---
PAGER ID: [phone] MESSAGE: Dione Alonso room 3020B is agitated and would benefit from PO Ativan if possible, thanks Shawanda ext [phone]
[2021-06-25] MEDS: atorvastatin 20mg tablet PO SCH (08:00)
[2021-06-25] MEDS: buPROPion 100mg tablet PO SCH ×2 (08:00→20:00)
[2021-06-25] MEDS: methylPREDNISolone sod succ 125mg/2ml vial IV SCH ×2 (08:00→15:51)
[2021-06-25] MEDS ORDERED: MVI, adult No.4 with vit. K 10 ML in dextrose 5% water 500ml 490 ML IV SCH ×2 (08:00)
[2021-06-25] MEDS: K and/or MAG REPLACEMENT MC SCH ×2 (08:00→20:00)
[2021-06-25] MEDS: enoxaparin 80mg/0.8ml syringe SUBCUT SCH (08:00)
[2021-06-25] MEDS: sertraline 50mg tablet PO SCH (08:00)
[2021-06-25] MEDS: OMEGA-3/DHA/EPA/FISH OIL 1 EACH CAPSULE.DR PO SCH ×2 (08:00→20:00)
[2021-06-25] MEDS: cholecalciferol (vitamin D3) 1,000 unit (25mcg) tablet PO SCH (08:00)
[2021-06-25] MEDS ORDERED: ziprasidone IM 20mg inj **IM only IM PRN (08:05)
--- NOTE | 2021-06-25 08:22 | NUR ---
Paged RT, patient Sating in 70-80's
[2021-06-25 08:31] LABS: BASOPHILS % (AUTO) 0.4 % (0-1); EOSINOPHILS % (AUTO) 0.1 % (0-6); HEMATOCRIT 30.5 % (42.0-52.0); HEMOGLOBIN 10.4 g/dl (14.0-17.9); LYMPHOCYTES # (AUTO) 0.7 X10'3 (1.1-4.8); LYMPHOCYTES % (AUTO) 6.1 % (21-51); MEAN CORPUSCULAR HEMOGLOBIN 30.1 PG (27.0-31.0); MEAN CORPUSCULAR HGB CONC 34.2 g/dL (33.0-36.5); MEAN CORPUSCULAR VOLUME 87.9 FL (78-98); MONOCYTES # (AUTO) 0.9 X10'3 (0-0.9); MONOCYTES % (AUTO) 8.8 % (2-12); NEUTROPHILS # (AUTO) 9.1 X10'3 (1.8-7.7); NEUTROPHILS % (AUTO) 84.6 % (42-75); PLATELET COUNT 174 X10'3 (140-440); RED BLOOD COUNT 3.47 X10'6 (4.70-6.10); WHITE BLOOD COUNT 10.7 X10'3 (4.5-11.0)
[2021-06-25] MEDS: ipratropium 0.5 MG/2.5ML nebule NEB SCH ×3 (08:55→19:41)
[2021-06-25 09:09] LABS: ALANINE AMINOTRANSFERASE 15 U/L (12-78); ALBUMIN 1.7 G/DL (3.4-5.0); ALBUMIN/GLOBULIN RATIO 0.4 (1.1-1.5); ALKALINE PHOSPHATASE 101 IU/L (46-116); ANION GAP 15 (8-16); ASPARTATE AMINO TRANSFERASE 23 U/L (10-37); BILIRUBIN,TOTAL 0.6 MG/DL (0.1-1.0); BLOOD UREA NITROGEN 28 MG/DL (7-18); BUN/CREATININE RATIO 38.9 (5.4-32.0); C-REACTIVE PROTEIN 17.69 MG/DL (0.0-0.5); CALCIUM 8.4 MG/DL (8.5-10.1); CHLORIDE 108 MMOL/L (99-107); CREATININE 0.72 MG/DL (0.60-1.10); GLUCOSE 149 MG/DL (70-104); MAGNESIUM 1.9 MG/DL (1.5-2.4); PHOSPHORUS 3.4 MG/DL (2.3-4.5); PREALBUMIN 8.5 MG/DL (19-36); SODIUM 146 MMOL/L (135-145); TOTAL CARBON DIOXIDE 22.7 MMOL/L (24-32); TOTAL PROTEIN 6.1 G/DL (6.4-8.2); TRIGLYCERIDES 277 MG/DL (20-135); eGFR > 90 ML/MIN
--- NOTE | 2021-06-25 09:10 | NUR ---
Paged due to pt's sat's being high 70's. Bipap placed 20/12 Rate 22 100%. Expiratory filter in place, and svn given inline. Pt's breath sounds improved from severe wheezes to slightly diminished, but clear. Spo2 improved to low 90's. RN also gave some giodon to with pt cooperation. Restraints are still in place with the sitter at bedside. Will cont to monitor pt for high pressures and titrate as needed to also try avoiding making his lungs worse with covid.
[2021-06-25 09:13] LABS: LACTATE DEHYDROGENASE 679 U/L (85-227); POTASSIUM 4.1 MMOL/L (3.5-5.1)
[2021-06-25 09:51] LABS: NUCLEATED RED BLOOD CELLS 1 /100WBC (0-0); TOTAL CELLS COUNTED 100
[2021-06-25 09:52] LABS: ANISOCYTOSIS 1+; PLATELET ESTIMATE NORMAL
[2021-06-25 09:53] LABS: BURR CELLS FEW
[2021-06-25 10:00] VITALS: BP 101/60
[2021-06-25] MEDS ORDERED: ondansetron 4mg rapidly disintigrating tab PO PRN (14:20)
--- NOTE | 2021-06-25 17:36 | NUR ---
PAGER ID: [phone] MESSAGE: patient Mp Alonso room 3027B's daughter is ready to change his code status and is waiting by the phone for a call from you. Shawanda ext [phone]
[2021-06-25] MEDS: CHROMIC CHLORIDE IV SCH (17:41)
[2021-06-25] MEDS: [UNRECOGNIZED DRUG - OTHER] IV SCH (17:41)
[2021-06-25] MEDS: COPPER IV SCH (17:41)
[2021-06-25] MEDS: ZINC IV SCH (17:41)
[2021-06-25] MEDS: SELENIUM IV SCH (17:41)
[2021-06-25] MEDS: MANGANESE IV SCH (17:41)
--- NOTE | 2021-06-25 18:37 | NUR ---
Problems reprioritized. Patient report given, questions answered & plan of care reviewed with Nancy ACEVEDO.
[2021-06-25] MEDS: docusate sod 100mg capsule PO SCH (20:00)
[2021-06-25] MEDS: divalproex sod 250mg ER (24-hour) tablet PO SCH (21:00)
[2021-06-25] MEDS: traZODone 50mg tablet PO SCH (21:00)
[2021-06-25] MEDS: insulin glargine (Lantus) pen - multi-dose SQ SCH (21:00)
[2021-06-25] MEDS: fat emulsion IV bag 250 ML IV SCH (23:07)
[2021-06-26] MEDS: methylPREDNISolone sod succ 125mg/2ml vial IV SCH ×2 (00:54→07:49)
[2021-06-26] MEDS: sodium chloride 0.45% 1,000 ML IV SCH ×2 (00:57→07:30)
[2021-06-26] MEDS: enoxaparin 80mg/0.8ml syringe SUBCUT SCH ×2 (01:00→07:50)
[2021-06-26 02:00] VITALS: BP 146/93
[2021-06-26] MEDS: ipratropium 0.5 MG/2.5ML nebule NEB SCH (03:00)
[2021-06-26] MEDS: MANGANESE IV SCH (03:17)
[2021-06-26] MEDS: SELENIUM IV SCH (03:17)
[2021-06-26] MEDS: CHROMIC CHLORIDE IV SCH (03:17)
[2021-06-26] MEDS: COPPER IV SCH (03:17)
[2021-06-26] MEDS: ZINC IV SCH (03:17)
[2021-06-26] MEDS: [UNRECOGNIZED DRUG - OTHER] IV SCH (03:17)
[2021-06-26 06:00] VITALS: BP 152/72
--- NOTE | 2021-06-26 06:51 | NUR ---
Paged Rapid Response Team O2 83 % on BIPAP 100%. Paged Dr. Menjivar as well
--- NOTE | 2021-06-26 06:51 | NUR ---
Patient in room ORTHO 4020. I have received report from Maryanne ACEVEDO and had the opportunity to ask questions and assume patient care.
--- NOTE | 2021-06-26 06:59 | NUR ---
Paged Dr. Menjivar PAGER ID: [phone] MESSAGE: Ortho Neuro rm 4020B, declining, on BIPAP 100% O2 Sat 83%, rapid called. Patient is DNR yet not a DNI, please call [phone] Mary ACEVEDO
--- NOTE | 2021-06-26 07:02 | NUR ---
Dr Menjivar paged PAGER ID: [phone] MESSAGE: Ortho Neuro rm 4020B, declining, on BIPAP 100% O2 Sat 83%, rapid called. Patient is DNR yet not a DNI, please call [phone] Mary ACEVEDO
--- NOTE | 2021-06-26 07:03 | NUR ---
Dr. Menjivar stated patient is a DNR, DNI
--- NOTE | 2021-06-26 07:05 | NUR ---
Called to Informed Vidhi (Daughter) [phone], patient is declining. She would like to speak to Dr. Menjivar and make him comfort care.
--- NOTE | 2021-06-26 07:10 | NUR ---
Paged Dr. Menjivar PAGER ID: [phone] MESSAGE: Ortho Neuro [id number] Mp Mayer. Please call Vidhi (Daughter) [phone]. She wants to place father on comfort care. I just spoke with her and she is awaiting your call. Mary ACEVEDO [phone]
[2021-06-26] MEDS: docusate sod 100mg capsule PO SCH (07:48)
[2021-06-26] MEDS: sertraline 50mg tablet PO SCH (07:48)
[2021-06-26] MEDS: atorvastatin 20mg tablet PO SCH (07:48)
[2021-06-26] MEDS: OMEGA-3/DHA/EPA/FISH OIL 1 EACH CAPSULE.DR PO SCH (07:48)
[2021-06-26] MEDS: cholecalciferol (vitamin D3) 1,000 unit (25mcg) tablet PO SCH (07:49)
[2021-06-26] MEDS: buPROPion 100mg tablet PO SCH (07:53)
[2021-06-26] MEDS: K and/or MAG REPLACEMENT MC SCH (08:00)
[2021-06-26] MEDS: insulin regular, human U-100 3ml vial - multi-dose SQ SCH (08:16)
[2021-06-26 10:00] VITALS: BP 159/81
--- NOTE | 2021-06-26 11:30 | NUR ---
Wound Care rounded on patient due to Low Nestor score. Per firearms expert, patient is on comfort care and no current skin concerns are present. Recommended continued pressure prevention methods.
--- NOTE | 2021-06-26 12:16 | NUR ---
Kayy to daughter jose and her brother and they are ready for the patient to come off bi-pap. I will call Dr. Menjivar for some morphine.
[2021-06-26] MEDS ORDERED: LORazepam 2 mg/ml vial IV PRN (12:25)
[2021-06-26] MEDS ORDERED: morphine 10mg/0.5ml (conc. morphine) oral syringe PO PRN (12:25)
[2021-06-26] MEDS ORDERED: morphine 2 MG/ML inj. syringe IV PRN (12:25)
[2021-06-26] MEDS ORDERED: morphine 4 MG/ML inj SYRINge IV PRN (12:25)
[2021-06-26] MEDS ORDERED: hyoscyamine 0.125mg TAB.SUBL SL PRN (12:25)
--- NOTE | 2021-06-26 12:42 | NUR ---
Family has requested comfort care patient be taken off BIPAP, Family member at bedside. Gathered comfort acre medication orders from Dr. Menjivar. Dr. Menjivar requested that Roxanol oral solution be given just before taken off BIPAP. Family at bedside on informed.
--- NOTE | 2021-06-26 12:52 | NUR ---
Patient taken off BIPAP, Family member at bedside with patient. Daughter Vidhi [phone] informed.
--- NOTE | 2021-06-26 13:03 | NUR ---
Patient is apneic breathing, Family member at bedside, comfort measures provided
--- NOTE | 2021-06-26 13:27 | NUR ---
RN Nurse Tejal at bedside when patient PEA the asystole, no breaths, Dr Menjivar informed to come pronounce patient
--- NOTE | 2021-06-26 13:36 | NUR ---
paged DR. Menjivar PAGER ID: [phone] MESSAGE: Ortho/Neuro rm 4020 Mp Mayer asystole at 1327. Please come to pronounce patient. Thank you Mary ACEVEDO [phone]
--- NOTE | 2021-06-26 14:01 | NUR ---
Patient 1327, was pronounced by Tejal WHALEY RN, Dr. Menjivar informed by telephone at 1330. Family member Vidhi Castellon informed via telephone at 1339, Not a corner patient, [facility] informed at 1344, reference number [id number] (not okayed for organ or tissue donation) body can be released. Family member Vidhi Castellon will call back to inform which mortuary to release body to. customer complaint service supervisor informed of by Change nurse Kim.
--- NOTE | 2021-06-26 15:05 | NUR ---
F/u: Noted patient's code status has been made DNR with comfort care. PPN discontinued in EMR. Will continue to follow per LOS. Recommendations: 1) Bowel care per comfort care measures Addendum: 06/26/21 at [address] Amended: Links added.
--- NOTE | 2021-06-26 16:19 | NUR ---
Nate's Direct Cremation , Ochoa Clifford here to bead picker and take to Mortuary.
== END 2021-06-26 16:25 | DRG 177 ==
LOC: ER 10:53 → ED HOLD 13:32 → ORTHO 4S 06-20 09:05
PROVIDERS: ADMIT Family Medicine; ATTEND Internal Medicine
PROC: B32T1ZZ Computerized Tomography (CT Scan) of Left Pulmonary Artery using Low Osmolar Contrast (ICD-10-PCS; 2021-06-19)
PROC: B3201ZZ Computerized Tomography (CT Scan) of Thoracic Aorta using Low Osmolar Contrast (ICD-10-PCS; 2021-06-19)
PROC: B32S1ZZ Computerized Tomography (CT Scan) of Right Pulmonary Artery using Low Osmolar Contrast (ICD-10-PCS; 2021-06-19)
PROC: 5A0945A Assistance with Respiratory Ventilation, 24-96 Consecutive Hours, High Flow/Velocity Cannula (ICD-10-PCS; 2021-06-20)
PROC: 5A0935A Assistance with Respiratory Ventilation, Less than 24 Consecutive Hours, High Flow/Velocity Cannula (ICD-10-PCS; 2021-06-23)
PROC: 5A0935A Assistance with Respiratory Ventilation, Less than 24 Consecutive Hours, High Flow/Velocity Cannula (ICD-10-PCS; 2021-06-24)
PROC: 5A09457 Assistance with Respiratory Ventilation, 24-96 Consecutive Hours, Continuous Positive Airway Pressure (ICD-10-PCS; principal; 2021-06-25)
PROC: 5A0935A Assistance with Respiratory Ventilation, Less than 24 Consecutive Hours, High Flow/Velocity Cannula (ICD-10-PCS; 2021-06-25)
DX: U07.1 COVID-19 (principal); J96.01 Acute respiratory failure with hypoxia; J12.82 Pneumonia due to coronavirus disease 2019; N17.0 Acute kidney failure with tubular necrosis; G93.41 Metabolic encephalopathy; J44.1 Chronic obstructive pulmonary disease with (acute) exacerbation; J44.0 Chronic obstructive pulmonary disease with (acute) lower respiratory infection; D68.59 Other primary thrombophilia; E87.0 Hyperosmolality and hypernatremia; E11.9 Type 2 diabetes mellitus without complications; E78.5 Hyperlipidemia, unspecified; E86.0 Dehydration; I10 Essential (primary) hypertension; Z51.5 Encounter for palliative care; Z66 Do not resuscitate; F17.210 Nicotine dependence, cigarettes, uncomplicated; Z79.84 Long term (current) use of oral hypoglycemic drugs; Z79.899 Other long term (current) drug therapy
CPT/HCPCS: 36415; 36600; 71045; 71275; 80053; 82803; 82948; 83615; 83735; 83880; 84100; 84134; 84145; 84478; 84484; 85007; 85018; 85025; 85379; 86140; 87081; 93005; 94640; 94660; 94760; 94799; 96374; 97110; 97161; 97530; 99291; G0378; J0696; J1100; J1650; J1815; J2930; J3370; J3486; J7030